=== PATIENT | male | born 1975 | race Caucasian/White ===

== ENCOUNTER → 2018-12-27 14:12 | Outpatient (CLI) | payer OTHER, MEDICAID, SELFPAY ==
--- NOTE | 2018-12-27 | DI.US.S_ITS ---
PROCEDURE: US PERIPH VENOUS LOW EXTREM LT INDICATIONS: PAIN IN LEFT CALF TECHNIQUE: Real-time imaging, as well as color and pulse Doppler interrogation, were performed of the lower extremity deep veins from the inguinal ligament to the popliteal fossa. COMPARISON: None. FINDINGS: The common femoral, femoral and popliteal veins are normally compressible, and free of intraluminal thrombus. Color and pulse Doppler demonstrate normal phasic intraluminal flow. There is normal augmentation response to distal compression maneuver. IMPRESSION: No evidence of deep venous thrombosis. Dictated by: Avery Peña M.D. on 12/27/2018 at 15:20 Approved by: Avery Peña M.D. on 12/27/2018 at 15:21
== END ==
PROVIDERS: PCP Physician Assistant; Visit Provider Physician Assistant
DX: M79.662 Pain in left lower leg (principal)
CPT/HCPCS: 93971

== ENCOUNTER 2019-07-22 18:02 | Emergency (ER) | payer OTHER, MEDICAID, SELFPAY ==
[2019-07-22 18:26] VITALS: BP 137/80; PULSE 64; RESP 12; TEMP 36.6; O2SAT 100
--- NOTE | 2019-07-22 18:26 | ED.GENADULT ---
HPI - General Adult General Chief complaint: Dental/Oral Stated complaint: Oral abscess not improving after antibiotics Time Seen by Provider: 07/22/19 18:26 Source: patient Mode of arrival: Ambulatory Limitations: no limitations History of Present Illness HPI narrative: 44-year-old male. Known poor dentition. Is currently on penicillin and Flagyl for a dental infection. He states that he feels like the infection is getting worse. Has been on these antibiotics for the past couple days. No fevers. He feels like the swelling the right side of his face is worsening. Also having right ear pain. No problems breathing. No problems swallowing. States that he has been taking the penicillin but could not take the Flagyl because it caused him to vomit. Has plans to see a dentist but has nothing scheduled currently. Related Data Previous Rx's Medication Instructions Recorded clindamycin HCl 300 mg PO QID 7 Days #28 cap 07/22/19 ondansetron 4 mg PO Q6H PRN #10 tab 07/22/19 Review of Systems Constitutional Constitutional: Denies fever(s) Eyes Comments: Pain around the right eye ENT Comments: Dental pain, right ear pain, swelling right-sided face Respiratory Respiratory: Denies cough Integumentary/Breasts Comments: Redness a right-sided face Neurologic Neurologic: Denies behavioral changes Psychiatric Psychiatric: Denies behavioral changes Hematologic/Lymphatic Hematologic/Lymphatic: Denies easy bleeding and Denies easy bruising Patient History Medical History Dental abscess (Acute) Social History Smoking Status: Never smoker Exam Initial Vital Signs Initial Vital Signs: Vital Signs Temperature 97.9 F 07/22/19 18:26 Pulse Rate 64 07/22/19 18:26 Respiratory Rate 12 07/22/19 18:26 Blood Pressure 137/80 07/22/19 18:26 Pulse Oximetry 100 07/22/19 18:26 Const General: cooperative and comfortable Limitations: mental status not altered HENMT Head: normal to inspection and normocephalic Ears: TM's normal bilaterally Nose: external nose normal Mouth: No drooling and No trismus Teeth and gingiva: poor dentition Throat: posterior oropharynx normal Resp Effort & Inspection: normal respiratory effort Skin Other: Redness around the right eye Extrem General: normal to inspection and capillary refill normal Psych Appearance: grossly normal and well kempt Course Orders Ordered: Discontinued Medications Clindamycin HCl (Cleocin) 300 mg PO NOW ONE Stop: 07/22/19 18:51 Vital Signs Vital signs: Vital Signs - 8 hr 07/22/19 18:26 Temperature 97.9 F Pulse Rate 64 Respiratory Rate 12 Blood Pressure 137/80 Pulse Oximetry 100 Medical Decision Making MDM Narrative Medical decision making narrative: Patient without problems breathing. Oropharynx is unremarkable. There does appear to be a small abscess the front upper region. As we were discussing potentially numbing this area and making an incision it spontaneously ruptured. He had purulent material come out from the area. He stated that the right-sided of his face felt better after this. I feel we could hold on further workup. We will switch him to clindamycin since the penicillin seems to not be working. He was given return precautions and follow-up instructions. He expressed understanding and agreement. Discharge Plan Departure Patient Disposition: Home Clinical Impression: Dental abscess Instructions: Tooth Abscess Activity Restrictions/Additional Instructions: You were given your 1st dose of antibiotics here in the emergency department. Your prescription was electronically transmitted to [facility]. Your next dose will be tomorrow morning. It is informed that you follow-up with a dentist for definitive treatment. Prescriptions: New clindamycin HCl 300 mg capsule 300 mg PO QID 7 Days Qty: 28 RF: 0 ondansetron 4 mg tablet,disintegrating 4 mg PO Q6H PRN (Reason: nausea and vomiting) Qty: 10 RF: 0 Referrals: Sumaya Santos PA-C [Primary Care Provider] -
[2019-07-22] MEDS: CLINDAMYCIN 150 MG CAPSULE 300 MG PO (19:20)
[2019-07-22 19:25] VITALS: BP 143/83; PULSE 73; RESP 15; O2SAT 99
== END 2019-07-22 19:26 | disposition home or self-care (01) ==
PROVIDERS: Emergency Provider Emergency Medicine; PCP Physician Assistant
DX: K04.7 Periapical abscess without sinus (principal)
CPT/HCPCS: 99283

== ENCOUNTER → 2023-06-18 09:03 | Outpatient (CLI) | payer OTHER, MEDICAID, SELFPAY | PROVIDERS: PCP Physician Assistant; Visit Provider Physician Assistant | DX: L02.512 Cutaneous abscess of left hand (principal) | CPT/HCPCS: 87070; 87075; 87205 ==